=== PATIENT | male | born 1985 | race Two or more races ===

== ENCOUNTER 2024-08-27 07:28 | Day surgery (SDC) | payer OTHER ==
[2024-08-22 09:59] VITALS: BP 142/83
[2024-08-22 10:20] LABS: HEMATOCRIT 47.4 % (39.0-48.0); HEMOGLOBIN 15.8 g/dL (13-16.00); MEAN CELL VOLUME 82.9 fL (80.0-100.00); MEAN CORPUSCULAR HEMOGLOBIN 27.6 pg (27.00-32.0); MEAN CORPUSCULAR HGB CONC 33.3 g/dl (32.0-36.0); PLATELET COUNT 180 K/uL (150-450); RED BLOOD COUNT 5.72 M/uL (4.00-6.00); RED CELL DISTRIBUTION WIDTH 14.6 % (11.5-14.5)
[2024-08-22 10:34] LABS: URINE APPEARANCE Clear; URINE BILIRRUBIN Negative (NEGATIVE); URINE BLOOD Negative; URINE COLOR Yellow; URINE GLUCOSE Negative (NEGATIVE); URINE KETONE Negative (NEGATIVE); URINE LEUKOCYTE Negative; URINE NITRATE Negative; URINE PROTEIN Negative (NEGATIVE); URINE UROBILINOGEN 0.2 E.U./dl
[2024-08-22 10:44] LABS: URINE BACTERIA 69.7 uL (0.0-1933); URINE EPITHELIAL CELLS 11.3 uL (0.0-38.8)
[2024-08-22 10:46] LABS: URINE RBC 1.6 uL (0.0-20.8)
[2024-08-22 10:55] LABS: PROTHROMBIN TIME 10.9 SECONDS (9.0-11.5)
[2024-08-22 11:28] LABS: CALCIUM 9.1 mg/dL (8.5-10.1); CREATININE SERUM 0.87 mg/dL (0.70-1.30); GFR 98.2; POTASSIUM 4.27 mEq/L (3.5-5.1)
[~2024-08-27] VITALS: Ht 180.3 cm; Wt 176.9 kg
[~2024-08-27 07:28] MED LIST: AVAPRO150 MG PO
[2024-08-27] MEDS ORDERED: ERTAPENEM SODIUM 1,000 MG VIAL ONE (10:00)
[2024-08-27] MEDS ORDERED: BUPIVACAINE HCL/MPF 0.5% 30ML VIAL ONE (10:00)
[2024-08-27] MEDS ORDERED: ENOXAPARIN SODIUM 40 MG/0.4 ML SYRINGE SUBCUTANEO ONE (10:04)
[2024-08-27] MEDS ORDERED: SUGAMMADEX SODIUM 200 MG/2 ML VIAL IV ONE (12:51)
[2024-08-27] MEDS ORDERED: COLACE100 MG PO (13:26)
[2024-08-27] MEDS ORDERED: CELEBREX200MG PO (13:26)
[2024-08-27] MEDS ORDERED: PERCOCET 5-3251 EACH PO (13:26)
[2024-08-27] MEDS ORDERED: NEURONTIN300 MG PO (13:26)
== END 2024-08-27 16:20 | disposition home or self-care (01) ==
LOC: CIR.AMB 07:28
PROVIDERS: ATTEND Surgery
DX: K40.90 Unilateral inguinal hernia, without obstruction or gangrene, not specified as recurrent (principal); I10 Essential (primary) hypertension; G47.33 Obstructive sleep apnea (adult) (pediatric); Z88.0 Allergy status to penicillin